=== PATIENT | female | born 1960 | race Caucasian/White ===

== ENCOUNTER 2020-10-03 08:26 | Day surgery (SDC) | payer OTHER ==
[~2020-10-03] VITALS: Ht 160 cm; Wt 71.5 kg
[~2020-10-03 08:26] MED LIST: ALPR1 PO; Allergy Medicat25 MG PO; B-100 COMPLEX100 MG PO; BENADRYL25 MG PO; CALCA500CH PO; CYCL10; CYCL10 PO; DOCU100 PO; DULO60; DULO60 PO; FLONASE ALLERG9.9 ML; FLUSAL2505; Flonase 0.05% N16 GM; HYDACE10B PO; HYDACE5 PO; IBUP800 PO; METO50ER PO; MULTIPLE VITAM1 EACH PO; Multiple Vitam1 EAC1 PO; NAPR500 PO; Norco 10-325 T1 EACH PO; OMEP20ER PO; ONDA4 PO; PROM25 PO; Prednisone50 MG PO; RANI150 PO; RISP.25 PO; RISP1 PO; STOOL SOFTENER1 EAC1 PO; Super B Comple150 MG PO; TRAZ50; VITAMIN D325 MC3 PO; Ventolin/Prove6.7 GM INH; Vitamin D400 UNI1
[2020-10-03] MEDS ORDERED: CYCL10 PO (08:56)
[2020-10-03] MEDS ORDERED: PREG25 (08:56)
== END 2020-10-03 10:50 | disposition home or self-care (01) ==
LOC: ORSCSDS 08:26
PROVIDERS: Internal Medicine Gastroenterology
PROC: 0DBN8ZX Excision of Sigmoid Colon, Via Natural or Artificial Opening Endoscopic, Diagnostic (ICD-10-PCS; principal; 2020-10-03 09:45)
DX: Z12.11 Encounter for screening for malignant neoplasm of colon (principal); Z86.010 Personal history of colon polyps; Z80.0 Family history of malignant neoplasm of digestive organs; D12.0 Benign neoplasm of cecum; K57.30 Diverticulosis of large intestine without perforation or abscess without bleeding; J45.909 Unspecified asthma, uncomplicated; F17.210 Nicotine dependence, cigarettes, uncomplicated; Z79.899 Other long term (current) drug therapy
CPT/HCPCS: 88305; J2704; J7120

== ENCOUNTER → 2024-05-01 | Outpatient (CLI) | payer OTHER ==
[~2024-05-01] MED LIST changes: +PREG25
[2024-05-14 17:49] LABS: HPV HIGH RISK BY TMA Not Detected; HPV SOURCE Cervical/Vag
== END ==
LOC: LAB 13:11 → LAB SHORT 13:11
PROVIDERS: Obstetrics & Gynecology
DX: Z01.419 Encounter for gynecological examination (general) (routine) without abnormal findings (principal)
CPT/HCPCS: 87624; G0123

== ENCOUNTER → 2025-05-04 | Outpatient (CLI) | payer OTHER ==
[2025-05-04 16:25] LABS: Bacterial Vaginosis PCR Negative (NEGATIVE); Candida Group, PCR NOT DETECTED (NOT DETECT); Candida glabrata-krusei, PCR NOT DETECTED (NOT DETECT)
== END | disposition home or self-care (01) ==
LOC: LAB 13:41 → LAB SHORT 13:41
PROVIDERS: Obstetrics & Gynecology
DX: N76.0 Acute vaginitis (principal)
CPT/HCPCS: 81515